=== PATIENT | male | born 1990 | race African-American/Black ===

== ENCOUNTER 2023-06-07 12:24 | Emergency (ER) | payer OTHER ==
[2023-06-07 12:45] VITALS: BP 106/65; PULSE 102; RESP 18; TEMP 98.5; BMI 20.9
[2023-06-07 13:51] LABS: PH,URINE 6.5 (5.0-8.0); URINE APPEARANCE CLEAR; URINE BILIRUBIN NEGATIVE (NEGATIVE); URINE COLOR YELLOW; URINE GLUCOSE (UA) NEGATIVE (NEGATIVE); URINE KETONE NEGATIVE (NEGATIVE); URINE LEUK ESTERASE NEGATIVE (NEGATIVE); URINE NITRITE NEGATIVE (NEGATIVE); URINE PROTEIN NEGATIVE (NEGATIVE)
[2023-06-07 14:49] LABS: SYPHILIS W/ RPR CONF NON-REACTIVE (NONREACTIVE)
[2023-06-07 15:18] LABS: HIV INTERPRETATION NEGATIVE (NEGATIVE)
== END 2023-06-07 15:30 | disposition home or self-care (01) ==
LOC: JERFT 12:24
DX: R10.30 Lower abdominal pain, unspecified (principal); R36.9 Urethral discharge, unspecified; R39.14 Feeling of incomplete bladder emptying
CPT/HCPCS: 36415; 74018-TC-FY; 81003; 86780; 87086; 87389; 87491; 87591; 99284-25

== ENCOUNTER 2024-02-24 12:48 | Emergency (ER) | payer OTHER ==
[2024-02-24 12:59] VITALS: BP 129/65; PULSE 74; RESP 17; TEMP 98; BMI 20.3
[2024-02-24] MEDS ORDERED: LIDOCAINE HCL 2% (20ML MULTI-DOSE VIAL) ONE (13:34)
== END 2024-02-24 14:12 | disposition home or self-care (01) ==
LOC: JERFT 12:48
DX: R36.9 Urethral discharge, unspecified (principal)
CPT/HCPCS: 36415; 87086; 87491; 87591; 99284-25